=== PATIENT | male | born 1995 | race Caucasian/White ===

== ENCOUNTER 2024-01-05 15:49 | Emergency (ER) | payer SELFPAY ==
[2024-01-05 15:56] VITALS: TEMP 98.8
--- NOTE | 2024-01-05 16:10 | ED ---
General Adult HPI - General Chief complaint: Trauma Stated complaint: R leg injury Time Seen by Provider: 01/05/24 16:01 Source: patient Mode of arrival: ambulatory Limitations: no limitations - History of Present Illness Initial comments: Dictation was produced using [employer] dictation software. please excuse any grammatical, word or spelling errors. Chief Complaint: 28-year-old male presents with right lower extremity injury History of Present Illness: Patient 28-year-old male he suffered a crush injury to his right leg. He states that he was getting ready to dock a boat when his leg got crushed between the [place] and the boat. Patient able to bear weight. States his tetanus is up-to-date. Walks with a limp. No numbness tingling paresthesias to the right lower extremity The ROS documented in this emergency department record has been reviewed and confirmed by me. Those systems with pertinent positive or negative responses have been documented in the HPI. All other systems are other negative and/or noncontributory. Severity scale (1-10): 7 - Related Data Previous Rx's Medication Instructions Recorded Amoxic-Pot Clav 875-125Mg 1 each PO Q12HR #20 tablet 08/28/13 [Augmentin Xr 875-125] Hydrocodone/Acetaminophen 1 each PO Q4HR PRN #20 tablet 08/28/13 [Hydrocodone/Acetaminophen 5-325] Cephalexin [Keflex] 500 mg PO Q6HR 5 Days #20 cap 01/05/24 Allergies Allergy/AdvReac Type Severity Reaction Status Date / Time No Known Allergies Allergy Verified 08/28/13 17:49 Review of Systems ROS Statement: Those systems with pertinent positive or pertinent negative responses have been documented in the HPI. ROS Other: All systems not noted in ROS Statement are negative. Past Medical History Past Medical History: No Reported History History of Any Multi-Drug Resistant Organisms: None Reported Past Surgical History: Tonsillectomy Past Psychological History: No Psychological Hx Reported Smoking Status: Current every day smoker Past Alcohol Use History: Occasional Past Drug Use History: Marijuana General Exam - General Exam Comments Initial Comments: General: Well-appearing, nontoxic, no acute distress. Head: Normocephalic, atraumatic Eyes: PERRLA, EOMI ENT: Airway patent Chest: Nonlabored breathing Skin: No visual rash, normal skin tone Neuro: Alert and oriented 3 Musculoskeletal: No gross abnormalities Right lower extremity: Large abrasion to the lateral calf area there does appear to be a piece of avulsed skin measuring about 2 x 2 cm exposed muscle tissue compartments are soft. 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 sent in by a medical professional or institution (, PA, CLINICAL EDUCATION ASSISTANT, urgent care, hospital, or fpc...) When possible be specific @ -No Did you speak to anyone other than the patient for history (EMS, parent, family, police, friend...)? What history was obtained from this source @ -No Did you review nursing and triage notes (agree or disagree)? Why? @ -I reviewed and agree with nursing and triage notes Were old charts reviewed (outside hosp., previous admission, EMS record, old EKG, old radiological studies, urgent care reports/EKG's, fpc records)? Report findings @ -No old charts were reviewed Differential Diagnosis (chest pain, altered mental status, abdominal pain women, abdominal pain men, vaginal bleeding, musculoskeletal, weakness, fever, dyspnea, syncope, headache, dizziness, GI bleed, back pain, seizure, CVA, palpatations, mental health)? @ -Tib-fib fracture, compartment syndrome, abrasion EKG interpreted by me (3pts min.). @ -None done X-rays interpreted by me (1pt min.). @ -Hip x-ray shows no fractures. CT interpreted by me (1pt min.). @ -None done U/S interpreted by me (1pt. min.). @ -None done What testing was considered but not performed or refused? (CT, X-rays, U/S, labs)? Why? @ -None What meds were considered but not given or refused? Why? @ -None Was smoking cessation discussed for >3mins.? @ -No Were there social determinants of health that impacted care today? How? (Homelessness, low income, unemployed, alcoholism, drug addiction, transportation, low edu. Level, literacy, decrease access to med. care, correction, rehab)? @ -No Was there de-escalation of care discussed even if they declined (Discuss DNR or withdrawal of care, Hospice)? DNR status @ -No What co-morbidities impacted this encounter? (DM, HTN, Smoking, COPD, CAD, Cancer, CVA, ARF, Chemo, Hep., AIDS, mental health diagnosis, sleep apnea, morbid obesity)? @ -None Was patient admitted / discharged? Hospital course, mention meds given and route, prescriptions, significant lab abnormalities, going to OR and other pertinent info. @ -28-year-old male presents with severe abrasion to the right lower leg. There does appear to be an area of complete skin avulsion. Vital signs upon arrival are within acceptable limits. Tetanus updated. X-ray shows no fracture. Patient would likely benefit from outpatient plastic surgery evaluation. He has a small circumferential 3 cm area of complete skin loss. Case discussed with Dr. Garcia who will follow-up with patient outpatient. Was dressed with bacitracin and Vaseline gauze loosely wrapped. Did you discuss the management of the patient with other professionals (ernestine vernon i.e. , PA, CLINICAL EDUCATION ASSISTANT, lab, RT, psych nurse, rn social services, cna pct, teacher, aoc operations intelligence officer, correctional casework specialist)? Give summary @ -No Was critical care preformed (if so, how long)? @ -No Undiagnosed new problem with uncertain prognosis? @ -No Drug Therapy requiring intensive monitoring for toxicity (Heparin, Nitro, Insulin, Cardizem)? @ -No Were any procedures done? @ -No Diagnosis/symptom? Acute, or Chronic, or Acute on Chronic? Uncomplicated (without systemic symptoms) or Complicated (systemic symptoms)? @ -Leg injury Side effects of treatment? @ -No Exacerbation, Progression, or Severe Exacerbation? @ -No Poses a threat to life or bodily function? How? (Chest pain, USA, MS, pneumonia, PE, COPD, DKA, ARF, appy, cholecystitis, CVA, Diverticulitis, Homicidal, Suicidal, threat to staff... and all critical care pts) @ -yes Disposition Clinical Impression: Abrasion Disposition: HOME SELF-CARE Condition: Fair Instructions (If sedation given, give patient instructions): Abrasion (ED) Prescriptions: Cephalexin [Keflex] 500 mg PO Q6HR 5 Days #20 cap Is patient prescribed a controlled substance at d/c from ED?: No Referrals: Willis Garcia MD [STAFF PHYSICIAN] - 1-2 days Time of Disposition: 17:08
[2024-01-05] MEDS: LIDOCAINE 2%-EPI 1:100,000 20 ML VIAL SQ STA (16:19)
[2024-01-05] MEDS: DIPH,PERTUS(ACELL)TETVAC-LF 0.5 ML VIAL IM ONE (16:20)
--- NOTE | 2024-01-05 16:28 | XR ---
EXAMINATION TYPE: XR tibia fibula RT DATE OF EXAM: 01/05/2024 4:20 PM COMPARISON: None available. CLINICAL INDICATION: Male, 28 years old with history of crush injury; [facility] TECHNIQUE: XR tibia fibula RT; examined in AP and lateral projections. FINDINGS: No acute fracture or dislocation. No focal osseous erosion or aggressive periosteal reactio n. Large soft tissue laceration defect along the lateral upper calf. IMPRESSION: Large soft tissue laceration without acute osseous abnormality. [facility], , 01/05/2024 4:25 PM
[2024-01-05] MEDS: BACITRACIN OINT 1 EACH PACKET TOPICAL ONE (17:18)
[2024-01-05 17:33] VITALS: BP 127/81; PULSE 82; RESP 18
== END 2024-01-05 17:35 | disposition home or self-care (01) ==
LOC: EC 15:49
DX: S80.811A Abrasion, right lower leg, initial encounter (principal); F17.200 Nicotine dependence, unspecified, uncomplicated; Z23 Encounter for immunization; W23.0XXA Caught, crushed, jammed, or pinched between moving objects, initial encounter
CPT/HCPCS: 90471; 90715; 99283